=== PATIENT | female | born 1995 | race Caucasian/White ===

== ENCOUNTER → 2017-01-19 | Outpatient (REF) | LOC: WSOH 11:39 | DX: Z02.89 Encounter for other administrative examinations (principal) ==

== ENCOUNTER 2017-02-17 20:13 | Emergency (ER) | payer OTHER ==
[~2017-02-17] VITALS: Ht 160 cm; Wt 54.5 kg
[2017-02-17 20:18] VITALS: TEMP 98
[2017-02-17] MEDS ORDERED: NORCO 325 MG-51 TAB PO (20:45)
[2017-02-17 20:52] VITALS: BP 129/75; PULSE 75
== END 2017-02-17 20:52 | disposition home or self-care (01) ==
LOC: COL.ER 20:13
DX: H18.822 Corneal disorder due to contact lens, left eye (principal); W22.8XXA Striking against or struck by other objects, initial encounter; Y92.009 Unspecified place in unspecified non-institutional (private) residence as the place of occurrence of the external cause